=== PATIENT | female | born 1955 | race Caucasian/White ===

== ENCOUNTER 2017-06-18 12:22 | Inpatient (IN) | payer MEDICARE, MEDICAID, OTHER ==
[2017-06-18] MEDS: SOD CHLORIDE 0.9% 1,000 ML IV ×3 (13:28→23:13)
[2017-06-18 13:35] LABS: ADD MAN DIFF? NO
[2017-06-18 13:38] LABS: BASOPHILS % 0.5 % (0.0-2.0); EOSINOPHILS % 0.4 % (0.0-7.0); HEMATOCRIT 43.1 % (37.0-47.0); LYMPHOCYTES # 1.3 10^3/ul (0.8-2.9); LYMPHOCYTES % 16.7 % (15.0-51.0); MEAN CORPUSCULAR HEMOGLOBIN 28.7 pg (29.0-33.0); MEAN CORPUSCULAR HGB CONC 34.8 g/dl (32.0-37.0); MEAN CORPUSCULAR VOLUME 82.4 fl (82.0-101.0); MEAN PLATELET VOLUME 9.1 fl (7.4-10.4); MONOCYTE # 0.6 10^3/ul (0.3-0.9); MONOCYTES % 7.5 % (0.0-11.0); NEUTROPHIL # 5.9 10^3/ul (1.6-7.5); NEUTROPHILS % 74.4 % (39.0-77.0); NUCLEATED RED BLOOD CELLS% 0.3 /100WBC (0.0-0.0); PLATELET COUNT 285 10^3/UL (140-415); RED BLOOD COUNT 5.23 10^6/ul (4.20-5.40); RED CELL DISTRIBUTION WIDTH 13.6 % (11.5-14.5)
[2017-06-18 13:38] LABS: WHITE BLOOD COUNT 7.9 10^3/ul (4.8-10.8)
[2017-06-18 14:01] LABS: ALANINE AMINOTRANSFERASE 25 IU/L (13-69); ALBUMIN/GLOBULIN RATIO 1.05; ALKALINE PHOSPHATASE 84 IU/L (42-121); ANION GAP 21 (8-16); ASPARTATE AMINO TRANSFERASE 25 IU/L (15-46); BILIRUBIN,INDIRECT 1.2 mg/dl (0-1.1); BILIRUBIN,TOTAL 1.2 mg/dl (0.2-1.3); BLOOD UREA NITROGEN 26 mg/dl (7-20); CALCIUM 10.4 mg/dl (8.4-10.2); CARBON DIOXIDE 28 mmol/L (21-31); CHLORIDE 96 mmol/L (97-110); CREATININE 0.72 mg/dl (0.44-1.00); GLUCOSE 139 mg/dl (70-220); SODIUM 142 mmol/L (135-144); TOTAL PROTEIN 7.8 g/dl (6.1-8.1)
[2017-06-18 14:12] LABS: TROPONIN-I 0.016 ng/ml (0.00-0.12)
[2017-06-18 14:17] LABS: ADD UMIC YES; UR ASCORBIC ACID NEGATIVE (NEGATIVE); UR BACTERIA FEW /HPF (NONE SEEN); UR BILIRUBIN (Dip) 2+ mg/dL (NEGATIVE); UR BLOOD (Dip) 1+ mg/dL (NEGATIVE); UR CLARITY CLOUDY (CLEAR); UR COLOR AMBER (YELLOW); UR GLUCOSE (Dip) NEGATIVE (NEGATIVE); UR KETONES (Dip) 1+ mg/dL (NEGATIVE); UR LEUKOCYTE ESTERASE (Dip) TRACE Leu/ul (NEGATIVE); UR MUCUS MANY /HPF (NONE SEEN); UR NITRITE (Dip) NEGATIVE (NEGATIVE); UR RBC 0 /HPF (0-5); UR SPECIFIC GRAVITY (Dip) 1.032 (1.003-1.030); UR SQUAMOUS EPITHELIAL CELL FEW /HPF (FEW); UR TOTAL PROTEIN (Dip) 2+ mg/dl (NEGATIVE); UR UROBILINOGEN (Dip) 2+ mg/dL (NEGATIVE); UR WBC 38 /HPF (0-5)
[2017-06-18] MEDS: CIPROFLOXACIN 400MG/D5W 200 ML IVPB (15:24)
[2017-06-18 16:28] LABS: LACTIC ACID 1.4 mmol/L (0.5-2.0)
[2017-06-18] MEDS ORDERED: ONDANSETRON 4 MG INJ IV (18:00)
[2017-06-18] MEDS ORDERED: ACETAMINOPHEN 325 MG TAB PO ×2 (18:00→18:30)
[2017-06-18 18:05] LABS: LACTIC ACID 1.5 mmol/L (0.5-2.0)
[2017-06-18] MEDS ORDERED: NITROGLYCERIN (SL) 0.4 MG TAB SL (18:30)
[2017-06-18] MEDS ORDERED: DOCUSATE SODIUM 100 MG CAP PO (18:30)
[2017-06-18] MEDS ORDERED: ALBUTEROL/IPRATROPIUM (NEB) 3 ML AMP HHN (18:30)
[2017-06-18] MEDS ORDERED: NACL 0.9% 3 ML SYG IV (18:30)
[2017-06-18] MEDS ORDERED: hydrALAzine 20 MG INJ IV (18:30)
[2017-06-18] MEDS ORDERED: LORAZEPAM 2 MG INJ IV (18:30)
[2017-06-18] MEDS ORDERED: morphine 2 MG INJ IV (18:30)
[2017-06-18] MEDS ORDERED: HYDROCODONE/APAP (5/325) TAB PO (18:30)
[2017-06-18] MEDS ORDERED: MAGNESIUM HYDROXIDE 30ML CUP PO (18:30)
[2017-06-18 19:10] LABS: FREE T4 (FREE THYROXINE) 1.56 ng/dl (0.78-2.44)
[2017-06-18 20:04] LABS: INR 0.98; PROTIME 13.1 Sec (11.9-14.9)
[2017-06-18 20:06] LABS: PARTIAL THROMBOPLASTIN TIME 25.9 Sec (25.0-35.0)
[2017-06-18 20:07] LABS: LACTIC ACID 1.4 mmol/L (0.5-2.0)
[2017-06-18] MEDS: IPRATROPIUM (NEB) 0.5 MG/2.5 ML AMP NEB (21:39)
[2017-06-18] MEDS: ALBUTEROL 0.083% (NEB) 2.5 MG/3 ML AMP NEB (21:39)
[2017-06-18] MEDS: PIPER-TAZO 3.375 GM IV (PMX) 50 ML IVPB (23:07)
[2017-06-19 01:42] LABS: LACTIC ACID 1.6 mmol/L (0.5-2.0)
[2017-06-19] MEDS: SOD CHLORIDE 0.9% 1,000 ML IV ×3 (04:29→21:10)
[2017-06-19 05:24] LABS: ADD MAN DIFF? NO
[2017-06-19 05:27] LABS: WHITE BLOOD COUNT 8.6 10^3/ul (4.8-10.8)
[2017-06-19 05:27] LABS: BASOPHILS % 0.4 % (0.0-2.0); EOSINOPHILS % 0.5 % (0.0-7.0); HEMATOCRIT 34.8 % (37.0-47.0); HEMOGLOBIN 12.1 g/dl (12.0-16.0); LYMPHOCYTES # 1.1 10^3/ul (0.8-2.9); LYMPHOCYTES % 13.2 % (15.0-51.0); MEAN CORPUSCULAR HEMOGLOBIN 28.9 pg (29.0-33.0); MEAN CORPUSCULAR HGB CONC 34.8 g/dl (32.0-37.0); MEAN CORPUSCULAR VOLUME 83.1 fl (82.0-101.0); MEAN PLATELET VOLUME 9.2 fl (7.4-10.4); MONOCYTE # 0.6 10^3/ul (0.3-0.9); MONOCYTES % 7.1 % (0.0-11.0); NEUTROPHIL # 6.7 10^3/ul (1.6-7.5); NEUTROPHILS % 78.2 % (39.0-77.0); NUCLEATED RED BLOOD CELLS% 0.2 /100WBC (0.0-0.0); PLATELET COUNT 192 10^3/UL (140-415); RED BLOOD COUNT 4.19 10^6/ul (4.20-5.40); RED CELL DISTRIBUTION WIDTH 13.6 % (11.5-14.5)
[2017-06-19 05:43] LABS: HEMOGLOBIN A1C 5.2 % (0-5.9)
[2017-06-19] MEDS: PANTOPRAZOLE 40 MG INJ IV (05:54)
[2017-06-19] MEDS: PIPER-TAZO 3.375 GM IV (PMX) 50 ML IVPB ×4 (05:55→23:50)
[2017-06-19 06:01] LABS: ANION GAP 15 (8-16); BLOOD UREA NITROGEN 18 mg/dl (7-20); CALCIUM 9.2 mg/dl (8.4-10.2); CARBON DIOXIDE 28 mmol/L (21-31); CHLORIDE 103 mmol/L (97-110); CREATININE 0.49 mg/dl (0.44-1.00); GLUCOSE 96 mg/dl (70-220); MAGNESIUM 1.7 mg/dl (1.7-2.5); PHOSPHORUS 2.9 mg/dl (2.5-4.9); SODIUM 143 mmol/L (135-144)
[2017-06-19] MEDS: ONDANSETRON 4 MG INJ IV (06:03)
[2017-06-19 06:22] LABS: LACTIC ACID 1.6 mmol/L (0.5-2.0)
[2017-06-19 07:48] LABS: CHOL/HDL RATIO 3.5 RATIO; HDL CHOLESTEROL 37 mg/dl (35-98); LDL CHOLESTEROL,CALCULATED 77 mg/dl; TRIGLYCERIDES 87 mg/dl (0-149)
[2017-06-19 07:48] LABS: CHOLESTEROL 131 mg/dl (100-200)
[2017-06-19 08:20] LABS: THYROID STIMULATING HORMONE 0.583 MIU/L (0.465-4.680)
[2017-06-19] MEDS ORDERED: POTASSIUM CHLORIDE 50 ML IVPB (10:00)
[2017-06-19] MEDS: POTASSIUM CHLORIDE 30 MEQ in DEXTROSE 5% 250 ML IV ×2 (11:15→15:00)
[2017-06-19 12:39] LABS: LACTIC ACID 1.2 mmol/L (0.5-2.0)
[2017-06-19 19:29] LABS: LACTIC ACID 1.6 mmol/L (0.5-2.0)
[2017-06-20] MEDS: SOD CHLORIDE 0.9% 1,000 ML IV ×4 (00:29→20:29)
[2017-06-20] MEDS: PIPER-TAZO 3.375 GM IV (PMX) 50 ML IVPB (05:03)
[2017-06-20] MEDS: PANTOPRAZOLE 40 MG INJ IV (05:03)
[2017-06-20 07:27] LABS: ADD MAN DIFF? NO
[2017-06-20 07:36] LABS: BASOPHIL # 0.1 10^3/ul (0.0-0.1); EOSINOPHILS # 0.2 10^3/ul (0.0-0.5); EOSINOPHILS % 2.8 % (0.0-7.0); HEMATOCRIT 32.5 % (37.0-47.0); HEMOGLOBIN 11.1 g/dl (12.0-16.0); LYMPHOCYTES # 1.3 10^3/ul (0.8-2.9); LYMPHOCYTES % 21.3 % (15.0-51.0); MEAN CORPUSCULAR HGB CONC 34.2 g/dl (32.0-37.0); MEAN CORPUSCULAR VOLUME 84.9 fl (82.0-101.0); MEAN PLATELET VOLUME 9.3 fl (7.4-10.4); MONOCYTE # 0.4 10^3/ul (0.3-0.9); MONOCYTES % 6.9 % (0.0-11.0); NEUTROPHIL # 4.1 10^3/ul (1.6-7.5); NEUTROPHILS % 67.2 % (39.0-77.0); PLATELET COUNT 156 10^3/UL (140-415); RED BLOOD COUNT 3.83 10^6/ul (4.20-5.40); RED CELL DISTRIBUTION WIDTH 13.7 % (11.5-14.5)
[2017-06-20 07:36] LABS: WHITE BLOOD COUNT 6.1 10^3/ul (4.8-10.8)
[2017-06-20 08:00] LABS: ANION GAP 12 (8-16); BLOOD UREA NITROGEN 9 mg/dl (7-20); CALCIUM 8.7 mg/dl (8.4-10.2); CARBON DIOXIDE 25 mmol/L (21-31); CHLORIDE 106 mmol/L (97-110); CREATININE 0.61 mg/dl (0.44-1.00); GLUCOSE 86 mg/dl (70-220); POTASSIUM 3.1 mmol/L (3.5-5.1); SODIUM 140 mmol/L (135-144)
[2017-06-20] MEDS: CEFTRIAXONE 1 GM/50 ML (PMX) 50 ML IVPB (18:33)
[2017-06-21] MEDS: SOD CHLORIDE 0.9% 1,000 ML IV ×3 (01:29→12:33)
[2017-06-21 06:24] LABS: ADD MAN DIFF? NO
[2017-06-21 06:29] LABS: WHITE BLOOD COUNT 5.6 10^3/ul (4.8-10.8)
[2017-06-21 06:29] LABS: BASOPHIL # 0.1 10^3/ul (0.0-0.1); BASOPHILS % 1.2 % (0.0-2.0); EOSINOPHILS # 0.2 10^3/ul (0.0-0.5); EOSINOPHILS % 3.2 % (0.0-7.0); HEMATOCRIT 31.8 % (37.0-47.0); HEMOGLOBIN 10.9 g/dl (12.0-16.0); LYMPHOCYTES # 1.8 10^3/ul (0.8-2.9); LYMPHOCYTES % 31.2 % (15.0-51.0); MEAN CORPUSCULAR HEMOGLOBIN 28.2 pg (29.0-33.0); MEAN CORPUSCULAR HGB CONC 34.3 g/dl (32.0-37.0); MEAN CORPUSCULAR VOLUME 82.4 fl (82.0-101.0); MEAN PLATELET VOLUME 8.9 fl (7.4-10.4); MONOCYTE # 0.3 10^3/ul (0.3-0.9); NEUTROPHIL # 3.2 10^3/ul (1.6-7.5); NEUTROPHILS % 57.2 % (39.0-77.0); PLATELET COUNT 140 10^3/UL (140-415); RED BLOOD COUNT 3.86 10^6/ul (4.20-5.40); RED CELL DISTRIBUTION WIDTH 13.3 % (11.5-14.5)
[2017-06-21 08:44] LABS: ANION GAP 14 (8-16); BLOOD UREA NITROGEN 4 mg/dl (7-20); CALCIUM 8.5 mg/dl (8.4-10.2); CARBON DIOXIDE 23 mmol/L (21-31); CHLORIDE 102 mmol/L (97-110); CREATININE 0.46 mg/dl (0.44-1.00); GLUCOSE 72 mg/dl (70-220); SODIUM 136 mmol/L (135-144)
[2017-06-21] MEDS: CEPHALEXIN 500 MG CAP PO (12:33)
[2017-06-21] MEDS: POTASSIUM CHLORIDE (SR) 20 MEQ TAB PO (12:33)
[2017-06-21] MEDS ORDERED: VITAMIN A & D 5 GM OINT PACKET TOP (12:53)
[2017-06-22] MEDS: SOD CHLORIDE 0.9% 1,000 ML IV ×5 (01:17→22:29)
[2017-06-22] MEDS: CEPHALEXIN 500 MG CAP PO ×2 (01:17→12:34)
[2017-06-22 07:33] LABS: ADD MAN DIFF? NO
[2017-06-22 07:37] LABS: WHITE BLOOD COUNT 4.5 10^3/ul (4.8-10.8)
[2017-06-22 07:37] LABS: BASOPHILS % 0.9 % (0.0-2.0); EOSINOPHILS # 0.1 10^3/ul (0.0-0.5); EOSINOPHILS % 2.2 % (0.0-7.0); HEMATOCRIT 29.4 % (37.0-47.0); HEMOGLOBIN 10.6 g/dl (12.0-16.0); LYMPHOCYTES # 1.5 10^3/ul (0.8-2.9); LYMPHOCYTES % 33.3 % (15.0-51.0); MEAN CORPUSCULAR HEMOGLOBIN 29.1 pg (29.0-33.0); MEAN CORPUSCULAR HGB CONC 36.1 g/dl (32.0-37.0); MEAN CORPUSCULAR VOLUME 80.8 fl (82.0-101.0); MONOCYTE # 0.3 10^3/ul (0.3-0.9); MONOCYTES % 5.8 % (0.0-11.0); NEUTROPHIL # 2.6 10^3/ul (1.6-7.5); NEUTROPHILS % 56.7 % (39.0-77.0); PLATELET COUNT 120 10^3/UL (140-415); RED BLOOD COUNT 3.64 10^6/ul (4.20-5.40); RED CELL DISTRIBUTION WIDTH 13.3 % (11.5-14.5)
[2017-06-22 08:02] LABS: BLOOD UREA NITROGEN 4 mg/dl (7-20); CARBON DIOXIDE 24 mmol/L (21-31); CHLORIDE 99 mmol/L (97-110); CREATININE 0.44 mg/dl (0.44-1.00); GLUCOSE 75 mg/dl (70-220)
[2017-06-22 08:21] LABS: ANION GAP 13 (8-16); CALCIUM 8.3 mg/dl (8.4-10.2); SODIUM 133 mmol/L (135-144)
[2017-06-22] MEDS: ASPIRIN 81 MG TAB PO (08:48)
[2017-06-22] MEDS: CARBIDOPA/LEVODOPA (25/100) TAB PO (21:45)
[2017-06-23] MEDS: CEPHALEXIN 500 MG CAP PO ×2 (00:12→12:20)
[2017-06-23 06:30] LABS: ADD MAN DIFF? NO
[2017-06-23 06:34] LABS: WHITE BLOOD COUNT 4.3 10^3/ul (4.8-10.8)
[2017-06-23 06:34] LABS: BASOPHILS % 0.9 % (0.0-2.0); EOSINOPHILS # 0.1 10^3/ul (0.0-0.5); EOSINOPHILS % 2.8 % (0.0-7.0); HEMOGLOBIN 11.4 g/dl (12.0-16.0); LYMPHOCYTES # 1.5 10^3/ul (0.8-2.9); LYMPHOCYTES % 35.1 % (15.0-51.0); MEAN CORPUSCULAR HEMOGLOBIN 29.2 pg (29.0-33.0); MEAN CORPUSCULAR HGB CONC 36.8 g/dl (32.0-37.0); MEAN CORPUSCULAR VOLUME 79.5 fl (82.0-101.0); MEAN PLATELET VOLUME 9.4 fl (7.4-10.4); MONOCYTE # 0.3 10^3/ul (0.3-0.9); NEUTROPHIL # 2.3 10^3/ul (1.6-7.5); NEUTROPHILS % 53.3 % (39.0-77.0); NUCLEATED RED BLOOD CELLS% 0.5 /100WBC (0.0-0.0); PLATELET COUNT 113 10^3/UL (140-415); RED CELL DISTRIBUTION WIDTH 13.2 % (11.5-14.5)
[2017-06-23 07:11] LABS: ANION GAP 14 (8-16); BLOOD UREA NITROGEN 4 mg/dl (7-20); CALCIUM 8.6 mg/dl (8.4-10.2); CARBON DIOXIDE 24 mmol/L (21-31); CHLORIDE 99 mmol/L (97-110); CREATININE 0.46 mg/dl (0.44-1.00); GLUCOSE 77 mg/dl (70-220); POTASSIUM 3.1 mmol/L (3.5-5.1); SODIUM 134 mmol/L (135-144)
[2017-06-23] MEDS: SOD CHLORIDE 0.9% 1,000 ML IV (09:28)
[2017-06-23] MEDS: ASPIRIN 81 MG TAB PO (09:29)
[2017-06-23] MEDS: CARBIDOPA/LEVODOPA (25/100) TAB PO ×3 (09:29→20:54)
[2017-06-23] MEDS: FLUCONAZOLE 200 MG TAB PO (18:36)
[2017-06-23 22:08] LABS: MAGNESIUM 1.4 mg/dl (1.7-2.5)
[2017-06-23] MEDS ORDERED: POTASSIUM CHLORIDE (SR) 20 MEQ TAB PO (23:07)
[2017-06-24] MEDS: CEPHALEXIN 500 MG CAP PO ×2 (00:14→12:44)
[2017-06-24] MEDS: MAGNESIUM SULFATE 2 GM/50 ML 50 ML IVPB (00:29)
[2017-06-24] MEDS: POTASSIUM CHLORIDE (SR) 20 MEQ TAB PO (03:04)
[2017-06-24] MEDS: POTASSIUM CHLORIDE 40 MEQ in SOD CHLORIDE 0.9% 250 ML IV ×2 (03:55→09:29)
[2017-06-24] MEDS: CARBIDOPA/LEVODOPA (25/100) TAB PO ×3 (09:29→21:01)
[2017-06-24] MEDS: ASPIRIN 81 MG TAB PO (09:29)
[2017-06-24] MEDS: FLUCONAZOLE 200 MG TAB PO (09:30)
[2017-06-24 15:20] LABS: ADD MAN DIFF? NO
[2017-06-24 15:25] LABS: WHITE BLOOD COUNT 4.2 10^3/ul (4.8-10.8)
[2017-06-24 15:25] LABS: EOSINOPHILS # 0.1 10^3/ul (0.0-0.5); EOSINOPHILS % 1.7 % (0.0-7.0); HEMATOCRIT 34.4 % (37.0-47.0); HEMOGLOBIN 12.2 g/dl (12.0-16.0); LYMPHOCYTES % 24.9 % (15.0-51.0); MEAN CORPUSCULAR HEMOGLOBIN 28.4 pg (29.0-33.0); MEAN CORPUSCULAR HGB CONC 35.5 g/dl (32.0-37.0); MEAN CORPUSCULAR VOLUME 80.2 fl (82.0-101.0); MEAN PLATELET VOLUME 9.1 fl (7.4-10.4); MONOCYTE # 0.2 10^3/ul (0.3-0.9); MONOCYTES % 5.8 % (0.0-11.0); NEUTROPHIL # 2.7 10^3/ul (1.6-7.5); NEUTROPHILS % 65.2 % (39.0-77.0); PLATELET COUNT 131 10^3/UL (140-415); RED BLOOD COUNT 4.29 10^6/ul (4.20-5.40); RED CELL DISTRIBUTION WIDTH 13.5 % (11.5-14.5)
[2017-06-24 16:32] LABS: ANION GAP 20 (8-16); BLOOD UREA NITROGEN 7 mg/dl (7-20); CALCIUM 9.2 mg/dl (8.4-10.2); CARBON DIOXIDE 20 mmol/L (21-31); CHLORIDE 103 mmol/L (97-110); CREATININE 0.49 mg/dl (0.44-1.00); GLUCOSE 84 mg/dl (70-220); POTASSIUM 4.6 mmol/L (3.5-5.1); SODIUM 138 mmol/L (135-144)
[2017-06-25] MEDS: CEPHALEXIN 500 MG CAP PO ×2 (00:45→13:09)
[2017-06-25 06:19] LABS: ADD MAN DIFF? NO
[2017-06-25 06:32] LABS: WHITE BLOOD COUNT 4.9 10^3/ul (4.8-10.8)
[2017-06-25 06:32] LABS: BASOPHIL # 0.1 10^3/ul (0.0-0.1); BASOPHILS % 1.2 % (0.0-2.0); EOSINOPHILS # 0.1 10^3/ul (0.0-0.5); EOSINOPHILS % 2.1 % (0.0-7.0); HEMATOCRIT 33.2 % (37.0-47.0); HEMOGLOBIN 11.8 g/dl (12.0-16.0); LYMPHOCYTES # 1.5 10^3/ul (0.8-2.9); LYMPHOCYTES % 31.5 % (15.0-51.0); MEAN CORPUSCULAR HEMOGLOBIN 28.6 pg (29.0-33.0); MEAN CORPUSCULAR HGB CONC 35.5 g/dl (32.0-37.0); MEAN CORPUSCULAR VOLUME 80.6 fl (82.0-101.0); MEAN PLATELET VOLUME 9.7 fl (7.4-10.4); MONOCYTE # 0.4 10^3/ul (0.3-0.9); MONOCYTES % 7.2 % (0.0-11.0); NEUTROPHIL # 2.7 10^3/ul (1.6-7.5); NEUTROPHILS % 56.6 % (39.0-77.0); PLATELET COUNT 116 10^3/UL (140-415); RED BLOOD COUNT 4.12 10^6/ul (4.20-5.40); RED CELL DISTRIBUTION WIDTH 13.6 % (11.5-14.5)
[2017-06-25 07:13] LABS: ANION GAP 18 (8-16); BLOOD UREA NITROGEN 7 mg/dl (7-20); CALCIUM 9.3 mg/dl (8.4-10.2); CARBON DIOXIDE 21 mmol/L (21-31); CHLORIDE 103 mmol/L (97-110); CREATININE 0.54 mg/dl (0.44-1.00); GLUCOSE 86 mg/dl (70-220); POTASSIUM 3.8 mmol/L (3.5-5.1); SODIUM 138 mmol/L (135-144)
[2017-06-25] MEDS: CARBIDOPA/LEVODOPA (25/100) TAB PO ×3 (09:47→21:22)
[2017-06-25] MEDS: ASPIRIN 81 MG TAB PO (09:47)
[2017-06-25] MEDS: FLUCONAZOLE 200 MG TAB PO (09:47)
[2017-06-25] MEDS: ONDANSETRON 4 MG INJ IV (13:15)
[2017-06-26] MEDS: CEPHALEXIN 500 MG CAP PO (00:13)
[2017-06-26] MEDS: CARBIDOPA/LEVODOPA (25/100) TAB PO ×2 (09:11→21:44)
[2017-06-26] MEDS: ASPIRIN 81 MG TAB PO (09:11)
[2017-06-26] MEDS: FLUCONAZOLE 200 MG TAB PO (09:11)
[2017-06-26 11:39] LABS: ADD MAN DIFF? NO
[2017-06-26 11:44] LABS: ABNORMAL IP MESSAGE 1; BASOPHIL # 0.1 10^3/ul (0.0-0.1); BASOPHILS % 1.1 % (0.0-2.0); EOSINOPHILS # 0.1 10^3/ul (0.0-0.5); EOSINOPHILS % 2.2 % (0.0-7.0); HEMATOCRIT 31.2 % (37.0-47.0); HEMOGLOBIN 10.9 g/dl (12.0-16.0); LYMPHOCYTES # 1.9 10^3/ul (0.8-2.9); LYMPHOCYTES % 41.3 % (15.0-51.0); MEAN CORPUSCULAR HEMOGLOBIN 28.5 pg (29.0-33.0); MEAN CORPUSCULAR HGB CONC 34.9 g/dl (32.0-37.0); MEAN CORPUSCULAR VOLUME 81.5 fl (82.0-101.0); MEAN PLATELET VOLUME 10.1 fl (7.4-10.4); MONOCYTE # 0.3 10^3/ul (0.3-0.9); MONOCYTES % 7.2 % (0.0-11.0); NEUTROPHIL # 2.2 10^3/ul (1.6-7.5); NEUTROPHILS % 47.3 % (39.0-77.0); PLATELET COUNT 99 10^3/UL (140-415); RED BLOOD COUNT 3.83 10^6/ul (4.20-5.40); RED CELL DISTRIBUTION WIDTH 13.6 % (11.5-14.5)
[2017-06-26 11:44] LABS: WHITE BLOOD COUNT 4.6 10^3/ul (4.8-10.8)
[2017-06-26 11:53] LABS: POSITIVE DIFF @See below
[2017-06-26 12:17] LABS: ANION GAP 19 (8-16); BLOOD UREA NITROGEN 10 mg/dl (7-20); CALCIUM 9.6 mg/dl (8.4-10.2); CARBON DIOXIDE 25 mmol/L (21-31); CHLORIDE 102 mmol/L (97-110); CREATININE 0.56 mg/dl (0.44-1.00); GLUCOSE 94 mg/dl (70-220); POTASSIUM 3.7 mmol/L (3.5-5.1); SODIUM 142 mmol/L (135-144)
[2017-06-27] MEDS: CARBIDOPA/LEVODOPA (25/100) TAB PO ×2 (08:04→20:40)
[2017-06-27] MEDS: FLUCONAZOLE 200 MG TAB PO (08:04)
[2017-06-27] MEDS: ASPIRIN 81 MG TAB PO (08:04)
[2017-06-27] MEDS: NA PHOSPHATE/BIPHOS 133 ML ENEMA PR (10:10)
[2017-06-28] MEDS: CARBIDOPA/LEVODOPA (25/100) TAB PO (10:02)
[2017-06-28] MEDS: ASPIRIN 81 MG TAB PO (10:02)
[2017-06-28 20:15] LABS: ADD MAN DIFF? NO
[2017-06-28 20:20] LABS: WHITE BLOOD COUNT 6.9 10^3/ul (4.8-10.8)
[2017-06-28 20:20] LABS: ABNORMAL IP MESSAGE 1; BASOPHIL # 0.1 10^3/ul (0.0-0.1); BASOPHILS % 0.7 % (0.0-2.0); EOSINOPHILS # 0.1 10^3/ul (0.0-0.5); EOSINOPHILS % 1.3 % (0.0-7.0); HEMATOCRIT 30.3 % (37.0-47.0); HEMOGLOBIN 10.7 g/dl (12.0-16.0); LYMPHOCYTES % 29.1 % (15.0-51.0); MEAN CORPUSCULAR HEMOGLOBIN 28.5 pg (29.0-33.0); MEAN CORPUSCULAR HGB CONC 35.3 g/dl (32.0-37.0); MEAN CORPUSCULAR VOLUME 80.8 fl (82.0-101.0); MEAN PLATELET VOLUME 10.2 fl (7.4-10.4); MONOCYTE # 0.4 10^3/ul (0.3-0.9); MONOCYTES % 5.1 % (0.0-11.0); NEUTROPHIL # 4.4 10^3/ul (1.6-7.5); NEUTROPHILS % 63.4 % (39.0-77.0); PLATELET COUNT 82 10^3/UL (140-415); RED BLOOD COUNT 3.75 10^6/ul (4.20-5.40); RED CELL DISTRIBUTION WIDTH 13.3 % (11.5-14.5)
[2017-06-28 20:29] LABS: INR 0.99; PROTIME 13.2 Sec (11.9-14.9)
[2017-06-28 20:30] LABS: PARTIAL THROMBOPLASTIN TIME 30.9 Sec (25.0-35.0)
[2017-06-28 20:31] LABS: POSITIVE DIFF @See below
[2017-06-28 20:35] LABS: ANION GAP 18 (8-16); BLOOD UREA NITROGEN 13 mg/dl (7-20); CALCIUM 9.2 mg/dl (8.4-10.2); CARBON DIOXIDE 24 mmol/L (21-31); CHLORIDE 102 mmol/L (97-110); CREATININE 0.48 mg/dl (0.44-1.00); GLUCOSE 109 mg/dl (70-220); POTASSIUM 3.6 mmol/L (3.5-5.1); SODIUM 140 mmol/L (135-144)
[2017-06-29] MEDS ORDERED: BACITRACIN/POLYMYXIN 28.35 GM OINT TOP (06:51)
[2017-06-29] MEDS ORDERED: LIDOCAINE 2% (SDV) 5 ML INJ (07:00)
[2017-06-29] MEDS ORDERED: SUCCINYLCHOLINE CHLORIDE 100 MG/5 ML SYG IV (07:00)
[2017-06-29] MEDS ORDERED: CEFAZOLIN 1 GM INJ (07:00)
[2017-06-29] MEDS ORDERED: PROPOFOL 40 ML (07:01)
[2017-06-29] MEDS ORDERED: ROCURONIUM 50 MG INJ (07:01)
[2017-06-29] MEDS ORDERED: FENTAnyl 50 MCG/ML VIAL ×2 (07:01→09:10)
[2017-06-29] MEDS ORDERED: MIDAZOLAM 1 MG/ML 2 ML INJ (07:01)
[2017-06-29] MEDS ORDERED: ONDANSETRON 4 MG INJ (07:02)
[2017-06-29] MEDS ORDERED: FAMOTIDINE 20 MG INJ (07:02)
[2017-06-29] MEDS ORDERED: DEXAMETHASONE 4 MG/ML 1 ML INJ (07:02)
[2017-06-29] MEDS ORDERED: ACETAMINOPHEN 1000MG/100ML IV 100 ML (07:08)
[2017-06-29] MEDS ORDERED: LABETALOL HCL 20MG INJ ×2 (07:54→12:02)
[2017-06-29] MEDS ORDERED: PHENYLephrine (100 MCG/ML) 5ML SYG ×2 (08:02→08:16)
[2017-06-29] MEDS ORDERED: ESMOLOL 10 ML ×2 (08:10)
[2017-06-29] MEDS ORDERED: CA CHLORIDE 10% 10 ML SYRINGE (08:25)
[2017-06-29] MEDS: GELATIN SIZE 100 SPONGE (08:42)
[2017-06-29] MEDS: THROMBIN 5000 UNIT VIAL (08:42)
[2017-06-29] MEDS: BUPIVACAINE 0.5%/EPI (SDV) 30 ML INJ (08:56)
[2017-06-29] MEDS: POLYMYXIN/BACITRACIN 1L IRRIG (08:56)
[2017-06-29] MEDS: LIDOCAINE 0.5% (MDV) 50 ML INJ (08:56)
[2017-06-29] MEDS: ASPIRIN 81 MG TAB PO (09:00)
[2017-06-29] MEDS ORDERED: SUGAMMADEX SODIUM 200 MG/2 ML VIAL IV (09:37)
[2017-06-29 10:33] LABS: CSF RBC 0 /uL (0-0); CSF WBC 0 /cmm (0-10)
[2017-06-29 10:47] LABS: GLUCOSE,CSF 66 mg/dl (50-80)
[2017-06-29 10:47] LABS: TOTAL PROTEIN,CSF 25 mg/dl (12-60)
[2017-06-29] MEDS ORDERED: EPHEDrine SULFATE 50 MG/5 ML SYG IV (11:00)
[2017-06-29] MEDS ORDERED: FENTAnyl 50 MCG/ML VIAL IV (11:00)
[2017-06-29] MEDS ORDERED: morphine (1 MG/ML) 10ML SYRINGE IV (11:00)
[2017-06-29] MEDS ORDERED: LABETALOL HCL 20MG INJ IV (11:00)
[2017-06-29] MEDS ORDERED: MIDAZOLAM 1 MG/ML 2 ML INJ IV (11:00)
[2017-06-29] MEDS ORDERED: ONDANSETRON 4 MG INJ IV (11:00)
[2017-06-29] MEDS ORDERED: NALOXONE (0.4 MG/ML) INJ (11:56)
[2017-06-29] MEDS: HYDROmorphONE (0.2 MG/ML) 10ML SYG IV (12:18)
[2017-06-29] MEDS: NALOXONE (0.4 MG/ML) INJ IV (12:23)
[2017-06-29] MEDS: FENTAnyl 50 MCG/ML VIAL IV ×4 (12:24→13:45)
[2017-06-29 12:26] LABS: CSF COLOR COLORLESS
[2017-06-29 12:26] LABS: CSF CLARITY CLEAR; CSF#TUBE COUNT TUBE#1; CSF#TUBES REC'D 1
[2017-06-29] MEDS: LABETALOL HCL 20MG INJ IV (13:00)
[2017-06-29] MEDS ORDERED: morphine 2 MG INJ IV (15:30)
[2017-06-29 18:16] LABS: AADO2 Arterial 240.2 mmHg (7.0-24.0); Allen Test ACCEPTAB; Arterial Base Excess -2.4 mmol/L (-3.0-3); Arterial COHb 0.1 % (0.0-3.0); Arterial Fraction of Oxyhgb 98.6 % (93.0-99.0); Arterial HCO3 22.1 mmol/L (22.0-26.0); Arterial MetHb 0.3 % (0.0-1.5); Arterial pCO2 36.8 mmhg (35-45); MODE VENT - AC; Site Right Radial
[2017-06-30 02:02] LABS: ADD UMIC NO; UR ASCORBIC ACID NEGATIVE (NEGATIVE); UR BILIRUBIN (Dip) NEGATIVE (NEGATIVE); UR BLOOD (Dip) NEGATIVE (NEGATIVE); UR CLARITY SLIGHTLY CLOUDY (CLEAR); UR COLOR AMBER (YELLOW); UR GLUCOSE (Dip) 1+ mg/dL (NEGATIVE); UR KETONES (Dip) NEGATIVE (NEGATIVE); UR LEUKOCYTE ESTERASE (Dip) NEGATIVE Leu/ul (NEGATIVE); UR MUCUS MANY /HPF (NONE SEEN); UR NITRITE (Dip) NEGATIVE (NEGATIVE); UR RBC 1 /HPF (0-5); UR SPECIFIC GRAVITY (Dip) 1.029 (1.003-1.030); UR TOTAL PROTEIN (Dip) NEGATIVE (NEGATIVE); UR UROBILINOGEN (Dip) 1+ mg/dL (NEGATIVE); UR WBC 6 /HPF (0-5)
[2017-06-30 05:17] LABS: ADD MAN DIFF? NO
[2017-06-30 05:30] LABS: ABNORMAL IP MESSAGE 1; BASOPHILS % 0.2 % (0.0-2.0); HEMATOCRIT 26.5 % (37.0-47.0); HEMOGLOBIN 9.5 g/dl (12.0-16.0); LYMPHOCYTES # 0.7 10^3/ul (0.8-2.9); LYMPHOCYTES % 6.7 % (15.0-51.0); MEAN CORPUSCULAR HEMOGLOBIN 29.2 pg (29.0-33.0); MEAN CORPUSCULAR HGB CONC 35.8 g/dl (32.0-37.0); MEAN CORPUSCULAR VOLUME 81.5 fl (82.0-101.0); MEAN PLATELET VOLUME 11.2 fl (7.4-10.4); MONOCYTE # 0.5 10^3/ul (0.3-0.9); MONOCYTES % 4.4 % (0.0-11.0); NEUTROPHIL # 9.8 10^3/ul (1.6-7.5); NEUTROPHILS % 88.1 % (39.0-77.0); PLATELET COUNT 65 10^3/UL (140-415); RED BLOOD COUNT 3.25 10^6/ul (4.20-5.40); RED CELL DISTRIBUTION WIDTH 13.5 % (11.5-14.5)
[2017-06-30 05:30] LABS: WHITE BLOOD COUNT 11.1 10^3/ul (4.8-10.8)
[2017-06-30 06:03] LABS: POSITIVE DIFF @See below
[2017-06-30 06:34] LABS: ANION GAP 17 (8-16); BLOOD UREA NITROGEN 17 mg/dl (7-20); CALCIUM 9.5 mg/dl (8.4-10.2); CARBON DIOXIDE 25 mmol/L (21-31); CHLORIDE 102 mmol/L (97-110); CREATININE 0.61 mg/dl (0.44-1.00); GLUCOSE 135 mg/dl (70-220); MAGNESIUM 1.5 mg/dl (1.7-2.5); POTASSIUM 4.2 mmol/L (3.5-5.1); SODIUM 140 mmol/L (135-144)
[2017-06-30] MEDS: MAGNESIUM SULFATE 2 GM/50 ML 50 ML IVPB (10:29)
[2017-06-30] MEDS: SOD CHLORIDE 0.9% 1,000 ML IV ×5 (10:29→22:33)
[2017-06-30] MEDS: FAMOTIDINE 20 MG INJ IV (10:43)
[2017-06-30 16:13] LABS: AADO2 Arterial 84.2 mmHg (7.0-24.0); Allen Test ACCEPTAB; Arterial Blood Gas Oxygen Sat 98.2 mmHG (95.0-98.0); Arterial COHb 0.2 % (0.0-3.0); Arterial Fraction of Oxyhgb 97.5 % (93.0-99.0); Arterial HCO3 18.1 mmol/L (22.0-26.0); Arterial MetHb 0.5 % (0.0-1.5); Arterial Total Hemglobin 8.6 g/dl (12.0-18.0); Arterial pCO2 26.7 mmhg (35-45); MODE VENT - AC; Site Left Radial
[2017-06-30 17:00] LABS: ANION GAP 14 (8-16); BLOOD UREA NITROGEN 18 mg/dl (7-20); CALCIUM 8.7 mg/dl (8.4-10.2); CARBON DIOXIDE 22 mmol/L (21-31); CHLORIDE 107 mmol/L (97-110); CREATININE 0.55 mg/dl (0.44-1.00); GLUCOSE 115 mg/dl (70-220); POTASSIUM 3.6 mmol/L (3.5-5.1); SODIUM 139 mmol/L (135-144)
[2017-06-30] MEDS: DOCUSATE SODIUM 100 MG CAP PO (17:32)
[2017-07-01 05:31] LABS: ADD MAN DIFF? NO
[2017-07-01 05:47] LABS: WHITE BLOOD COUNT 10.6 10^3/ul (4.8-10.8)
[2017-07-01 05:47] LABS: ABNORMAL IP MESSAGE 1; BASOPHILS % 0.1 % (0.0-2.0); EOSINOPHILS % 0.2 % (0.0-7.0); HEMATOCRIT 20.9 % (37.0-47.0); HEMOGLOBIN 7.4 g/dl (12.0-16.0); LYMPHOCYTES # 1.3 10^3/ul (0.8-2.9); LYMPHOCYTES % 11.9 % (15.0-51.0); MEAN CORPUSCULAR HEMOGLOBIN 29.2 pg (29.0-33.0); MEAN CORPUSCULAR HGB CONC 35.4 g/dl (32.0-37.0); MEAN CORPUSCULAR VOLUME 82.6 fl (82.0-101.0); MEAN PLATELET VOLUME 11.3 fl (7.4-10.4); MONOCYTE # 0.6 10^3/ul (0.3-0.9); MONOCYTES % 5.2 % (0.0-11.0); NEUTROPHIL # 8.7 10^3/ul (1.6-7.5); NEUTROPHILS % 81.9 % (39.0-77.0); PLATELET COUNT 57 10^3/UL (140-415); RED BLOOD COUNT 2.53 10^6/ul (4.20-5.40); RED CELL DISTRIBUTION WIDTH 13.6 % (11.5-14.5)
[2017-07-01 06:07] LABS: ANION GAP 13 (8-16); BLOOD UREA NITROGEN 18 mg/dl (7-20); CALCIUM 8.3 mg/dl (8.4-10.2); CARBON DIOXIDE 22 mmol/L (21-31); CHLORIDE 111 mmol/L (97-110); GLUCOSE 105 mg/dl (70-220); POTASSIUM 3.4 mmol/L (3.5-5.1); SODIUM 143 mmol/L (135-144)
[2017-07-01] MEDS: DOCUSATE SODIUM 100 MG CAP PO ×2 (06:11→17:01)
[2017-07-01 06:14] LABS: POSITIVE DIFF @See below
[2017-07-01 09:44] LABS: MAGNESIUM 1.9 mg/dl (1.7-2.5)
[2017-07-01] MEDS: SOD CHLORIDE 0.9% 1,000 ML IV ×5 (11:23→22:40)
[2017-07-01] MEDS: FAMOTIDINE 20 MG INJ IV (11:23)
[2017-07-01] MEDS: POTASSIUM CHLORIDE 50 ML IVPB ×3 (11:28→17:00)
[2017-07-01] MEDS: SOD CHLORIDE 0.9% 500 ML IV (20:37)
[2017-07-01] MEDS ORDERED: LIDOCAINE 1% (MPF) 5 ML VIAL SC (22:30)
[2017-07-01] MEDS: ALBUMIN HUMAN 25% 100 ML IV (22:40)
[2017-07-02] MEDS: ALBUMIN HUMAN 25% 100 ML IV (02:02)
[2017-07-02] MEDS: SOD CHLORIDE 0.9% 1,000 ML IV ×2 (02:05→10:52)
[2017-07-02 05:24] LABS: ADD MAN DIFF? NO
[2017-07-02 05:34] LABS: ABNORMAL IP MESSAGE 1; EOSINOPHILS % 0.6 % (0.0-7.0); HEMATOCRIT 15.9 % (37.0-47.0); LYMPHOCYTES # 1.2 10^3/ul (0.8-2.9); LYMPHOCYTES % 25.7 % (15.0-51.0); MEAN CORPUSCULAR HEMOGLOBIN 28.3 pg (29.0-33.0); MEAN CORPUSCULAR HGB CONC 33.3 g/dl (32.0-37.0); MEAN PLATELET VOLUME 10.4 fl (7.4-10.4); MONOCYTE # 0.2 10^3/ul (0.3-0.9); MONOCYTES % 5.1 % (0.0-11.0); NEUTROPHIL # 3.2 10^3/ul (1.6-7.5); NEUTROPHILS % 67.7 % (39.0-77.0); PLATELET COUNT 41 10^3/UL (140-415); RED BLOOD COUNT 1.87 10^6/ul (4.20-5.40); RED CELL DISTRIBUTION WIDTH 14.1 % (11.5-14.5)
[2017-07-02 05:34] LABS: WHITE BLOOD COUNT 4.7 10^3/ul (4.8-10.8)
[2017-07-02 06:03] LABS: ANION GAP 13 (8-16); BLOOD UREA NITROGEN 13 mg/dl (7-20); CALCIUM 8.6 mg/dl (8.4-10.2); CARBON DIOXIDE 22 mmol/L (21-31); CHLORIDE 118 mmol/L (97-110); GLUCOSE 88 mg/dl (70-220); POTASSIUM 3.1 mmol/L (3.5-5.1); SODIUM 150 mmol/L (135-144)
[2017-07-02 06:05] LABS: HEMOGLOBIN 5.3 g/dl (12.0-16.0)
[2017-07-02 06:06] LABS: PATH REVIEW? YES; POSITIVE DIFF @See below
[2017-07-02] MEDS: DOCUSATE SODIUM 100 MG CAP PO ×2 (06:30→18:11)
[2017-07-02] MEDS ORDERED: POTASSIUM CHLORIDE 30 MEQ in SOD CHLORIDE 0.9% 150 ML IVPB (06:30)
[2017-07-02] MEDS: POTASSIUM CHLORIDE 50 ML IVPB ×3 (07:02→16:15)
[2017-07-02 07:34] LABS: ANISOCYTOSIS 3+ (0-0); BAND NEUTROPHILS #M 0.1 10^3/ul (0.0-0.6); BAND NEUTROPHILS % (M) 3 % (0-4); EOSINOPHILS % (M) 1 % (0-7); LYMPHOCYTES #M 1.7 10^3/ul (0.8-2.9); LYMPHOCYTES % (M) 38 % (15-51); MICROCYTOSIS 3+ (0-0); MONOCYTES % (M) 1 % (0-11); PLATELET ESTIMATE SIG DECREASED; POIKILOCYTOSIS 1+ (0-0); POLYCHROMASIA 1+ (0-0); SEG NEUT #M 2.7 10^3/ul (1.7-7.5); SEGMENTED NEUTROPHILS (M) % 57 % (39-77)
[2017-07-02 07:43] LABS: MAGNESIUM 2.3 mg/dl (1.7-2.5)
[2017-07-02 09:15] LABS: IMMEDIATE SPIN CROSSMATCH 1 2
[2017-07-02] MEDS: FAMOTIDINE 20 MG INJ IV (09:42)
[2017-07-02 12:17] LABS: HEPATITIS C VIRAL ANTIBODY NEGATIVE (NEGATIVE)
[2017-07-02] MEDS: CARBIDOPA/LEVODOPA (25/100) TAB NGT ×2 (14:31→20:00)
[2017-07-02] MEDS: LACTATED RINGER'S 1,000 ML IV ×2 (16:30→20:22)
[2017-07-02] MEDS: NORepinephrine 8MG/250 ML (PMX 250 ML IV (18:02)
[2017-07-02 18:37] LABS: RAPID PLASMA REAGIN NONREACTIVE (NR)
[2017-07-03] MEDS: LACTATED RINGER'S 1,000 ML IV (03:15)
[2017-07-03 05:07] LABS: ADD MAN DIFF? NO
[2017-07-03 05:20] LABS: AADO2 Arterial 31.8 mmHg (7.0-24.0); Allen Test ACCEPTAB; Arterial Base Excess -0.4 mmol/L (-3.0-3); Arterial Blood Gas Oxygen Sat 97.9 mmHG (95.0-98.0); Arterial COHb 0.2 % (0.0-3.0); Arterial Fraction of Oxyhgb 97.6 % (93.0-99.0); Arterial HCO3 23.1 mmol/L (22.0-26.0); Arterial MetHb 0.1 % (0.0-1.5); Arterial Total Hemglobin 11.8 g/dl (12.0-18.0); Arterial pCO2 34.2 mmhg (35-45); MODE VENT - AC; Site Right Radial
[2017-07-03 05:21] LABS: WHITE BLOOD COUNT 6.6 10^3/ul (4.8-10.8)
[2017-07-03 05:21] LABS: ABNORMAL IP MESSAGE 1; BASOPHILS % 0.3 % (0.0-2.0); EOSINOPHILS # 0.1 10^3/ul (0.0-0.5); EOSINOPHILS % 2.1 % (0.0-7.0); HEMATOCRIT 23.5 % (37.0-47.0); HEMOGLOBIN 7.9 g/dl (12.0-16.0); LYMPHOCYTES # 1.6 10^3/ul (0.8-2.9); LYMPHOCYTES % 24.2 % (15.0-51.0); MEAN CORPUSCULAR HEMOGLOBIN 28.6 pg (29.0-33.0); MEAN CORPUSCULAR HGB CONC 33.6 g/dl (32.0-37.0); MEAN CORPUSCULAR VOLUME 85.1 fl (82.0-101.0); MEAN PLATELET VOLUME 9.8 fl (7.4-10.4); MONOCYTE # 0.3 10^3/ul (0.3-0.9); MONOCYTES % 4.5 % (0.0-11.0); NEUTROPHIL # 4.5 10^3/ul (1.6-7.5); NEUTROPHILS % 68.4 % (39.0-77.0); PLATELET COUNT 56 10^3/UL (140-415); RED BLOOD COUNT 2.76 10^6/ul (4.20-5.40); RED CELL DISTRIBUTION WIDTH 14.2 % (11.5-14.5)
[2017-07-03] MEDS: DOCUSATE SODIUM 100 MG CAP PO ×2 (05:37→18:38)
[2017-07-03 05:38] LABS: LACTIC ACID 1.7 mmol/L (0.5-2.0)
[2017-07-03 05:57] LABS: POSITIVE DIFF @See below
[2017-07-03 06:12] LABS: ANION GAP 12 (8-16); BLOOD UREA NITROGEN 7 mg/dl (7-20); CALCIUM 8.8 mg/dl (8.4-10.2); CARBON DIOXIDE 25 mmol/L (21-31); CHLORIDE 119 mmol/L (97-110); CREATININE 0.49 mg/dl (0.44-1.00); GLUCOSE 91 mg/dl (70-220); POTASSIUM 3.2 mmol/L (3.5-5.1); SODIUM 153 mmol/L (135-144)
[2017-07-03] MEDS: CARBIDOPA/LEVODOPA (25/100) TAB NGT ×3 (08:11→20:22)
[2017-07-03] MEDS: FAMOTIDINE 20 MG INJ IV (08:14)
[2017-07-03] MEDS ORDERED: POTASSIUM CHLORIDE (1.33 MEQ/ML PO SYG) NGT (09:00)
[2017-07-03] MEDS ORDERED: POTASSIUM CHLORIDE 30 MEQ in DEXTROSE 5% 250 ML IVPB (09:00)
[2017-07-03] MEDS: POTASSIUM CHLORIDE 20 MEQ POWDER FOR ORAL SOLN NGT ×3 (09:37→19:19)
[2017-07-03] MEDS: POTASSIUM CHLORIDE 50 ML IVPB ×3 (09:45→12:39)
[2017-07-03] MEDS: POTASSIUM CHLORIDE 10 MEQ in DEXTROSE 5%-0.225% NACL 1,000 ML IV ×2 (10:22→21:34)
[2017-07-03] MEDS: COSYNTROPIN 0.25 MG INJ IV (10:45)
[2017-07-03] MEDS: HYDROCORTISONE 100 MG INJ IV (10:50)
[2017-07-03] MEDS ORDERED: HEPARIN (10 UNITS/ML) 5ML SYG IV (15:30)
[2017-07-04] MEDS: POTASSIUM CHLORIDE 10 MEQ in DEXTROSE 5%-0.225% NACL 1,000 ML IV ×2 (02:46→18:00)
[2017-07-04 05:13] LABS: AADO2 Arterial 92.7 mmHg (7.0-24.0); Allen Test ACCEPTAB; Arterial Base Excess 3.2 mmol/L (-3.0-3); Arterial Blood Gas Oxygen Sat 95.5 mmHG (95.0-98.0); Arterial COHb 0.2 % (0.0-3.0); Arterial MetHb 0.3 % (0.0-1.5); Arterial pCO2 37.9 mmhg (35-45); MODE VENT - AC; Site Right Radial
[2017-07-04] MEDS: DOCUSATE SODIUM 100 MG CAP PO ×2 (05:30→10:00)
[2017-07-04 05:44] LABS: ADD MAN DIFF? NO
[2017-07-04 05:49] LABS: WHITE BLOOD COUNT 7.2 10^3/ul (4.8-10.8)
[2017-07-04 05:49] LABS: ABNORMAL IP MESSAGE 1; EOSINOPHILS # 0.1 10^3/ul (0.0-0.5); EOSINOPHILS % 0.8 % (0.0-7.0); HEMATOCRIT 24.2 % (37.0-47.0); HEMOGLOBIN 8.1 g/dl (12.0-16.0); LYMPHOCYTES # 1.1 10^3/ul (0.8-2.9); LYMPHOCYTES % 14.6 % (15.0-51.0); MEAN CORPUSCULAR HEMOGLOBIN 28.1 pg (29.0-33.0); MEAN CORPUSCULAR HGB CONC 33.5 g/dl (32.0-37.0); MEAN PLATELET VOLUME 10.5 fl (7.4-10.4); MONOCYTE # 0.3 10^3/ul (0.3-0.9); MONOCYTES % 4.5 % (0.0-11.0); NEUTROPHIL # 5.7 10^3/ul (1.6-7.5); NEUTROPHILS % 79.7 % (39.0-77.0); RED BLOOD COUNT 2.88 10^6/ul (4.20-5.40); RED CELL DISTRIBUTION WIDTH 14.5 % (11.5-14.5)
[2017-07-04 06:03] LABS: POSITIVE DIFF @See below
[2017-07-04 06:04] LABS: PLATELET COUNT 70 10^3/UL (140-415)
[2017-07-04 06:29] LABS: ALANINE AMINOTRANSFERASE 25 IU/L (13-69); ALBUMIN 2.6 g/dl (3.3-4.9); ALBUMIN/GLOBULIN RATIO 1.18; ALKALINE PHOSPHATASE 64 IU/L (42-121); ANION GAP 12 (8-16); ASPARTATE AMINO TRANSFERASE 10 IU/L (15-46); BILIRUBIN,INDIRECT 0.5 mg/dl (0-1.1); BILIRUBIN,TOTAL 0.5 mg/dl (0.2-1.3); BLOOD UREA NITROGEN 11 mg/dl (7-20); CALCIUM 8.7 mg/dl (8.4-10.2); CARBON DIOXIDE 28 mmol/L (21-31); CHLORIDE 113 mmol/L (97-110); CREATININE 0.46 mg/dl (0.44-1.00); GLUCOSE 126 mg/dl (70-220); POTASSIUM 4.2 mmol/L (3.5-5.1); SODIUM 149 mmol/L (135-144); TOTAL PROTEIN 4.8 g/dl (6.1-8.1)
[2017-07-04 06:31] LABS: MAGNESIUM 1.9 mg/dl (1.7-2.5)
[2017-07-04 06:31] LABS: PHOSPHORUS 1.5 mg/dl (2.5-4.9)
[2017-07-04 08:43] LABS: LACTIC ACID 1.2 mmol/L (0.5-2.0)
[2017-07-04] MEDS: CARBIDOPA/LEVODOPA (25/100) TAB NGT ×3 (10:26→20:42)
[2017-07-04] MEDS: FAMOTIDINE 20 MG INJ IV (10:28)
[2017-07-04] MEDS: FAMOTIDINE 20 MG TAB NGT (20:42)
[2017-07-05 05:22] LABS: ABNORMAL IP MESSAGE 1; HEMATOCRIT 25.5 % (37.0-47.0); HEMOGLOBIN 8.6 g/dl (12.0-16.0); MEAN CORPUSCULAR HEMOGLOBIN 28.7 pg (29.0-33.0); MEAN CORPUSCULAR HGB CONC 33.7 g/dl (32.0-37.0); MEAN PLATELET VOLUME 10.7 fl (7.4-10.4); NUCLEATED RED BLOOD CELLS% 0.6 /100WBC (0.0-0.0); PLATELET COUNT 95 10^3/UL (140-415); RED CELL DISTRIBUTION WIDTH 14.4 % (11.5-14.5)
[2017-07-05 05:22] LABS: WHITE BLOOD COUNT 8.4 10^3/ul (4.8-10.8)
[2017-07-05 05:32] LABS: ADD MAN DIFF? YES; POSITIVE DIFF @See below
[2017-07-05 06:19] LABS: ALANINE AMINOTRANSFERASE 25 IU/L (13-69); ALBUMIN 2.4 g/dl (3.3-4.9); ALBUMIN/GLOBULIN RATIO 0.92; ALKALINE PHOSPHATASE 70 IU/L (42-121); ANION GAP 8 (8-16); ASPARTATE AMINO TRANSFERASE 13 IU/L (15-46); BILIRUBIN,INDIRECT 0.5 mg/dl (0-1.1); BILIRUBIN,TOTAL 0.5 mg/dl (0.2-1.3); BLOOD UREA NITROGEN 9 mg/dl (7-20); CARBON DIOXIDE 29 mmol/L (21-31); CHLORIDE 107 mmol/L (97-110); GLUCOSE 115 mg/dl (70-220); POTASSIUM 3.7 mmol/L (3.5-5.1); SODIUM 140 mmol/L (135-144)
[2017-07-05 07:32] LABS: PHOSPHORUS 1.4 mg/dl (2.5-4.9)
[2017-07-05 07:32] LABS: MAGNESIUM 1.8 mg/dl (1.7-2.5)
[2017-07-05 07:53] LABS: ANISOCYTOSIS 2+ (0-0); BAND NEUTROPHILS #M 1.2 10^3/ul (0.0-0.6); BAND NEUTROPHILS % (M) 15 % (0-4); EOSINOPHILS % (M) 1 % (0-7); ERYTHROBLAST% (NRBC) (M) 1 % (0-0); LYMPHOCYTES #M 3.3 10^3/ul (0.8-2.9); LYMPHOCYTES % (M) 40 % (15-51); MONOCYTES % (M) 1 % (0-11); PLATELET ESTIMATE DECREASED; SEG NEUT #M 3.5 10^3/ul (1.7-7.5); SEGMENTED NEUTROPHILS (M) % 40 % (39-77); SMUDGE%M 10 % (0-0)
[2017-07-05] MEDS: DOCUSATE SODIUM 10 MG/ML (10ML CUP) GTB ×2 (08:57→20:55)
[2017-07-05] MEDS: CARBIDOPA/LEVODOPA (25/100) TAB NGT ×3 (08:57→20:55)
[2017-07-05] MEDS: POTASSIUM CHLORIDE 10 MEQ in DEXTROSE 5%-0.225% NACL 1,000 ML IV (08:58)
[2017-07-05] MEDS: FAMOTIDINE 20 MG TAB NGT ×2 (08:58→20:55)
[2017-07-05 19:03] LABS: ADD UMIC NO; UR ASCORBIC ACID NEGATIVE (NEGATIVE); UR BILIRUBIN (Dip) NEGATIVE (NEGATIVE); UR BLOOD (Dip) NEGATIVE (NEGATIVE); UR CLARITY CLEAR (CLEAR); UR COLOR YELLOW (YELLOW); UR GLUCOSE (Dip) NEGATIVE (NEGATIVE); UR KETONES (Dip) NEGATIVE (NEGATIVE); UR LEUKOCYTE ESTERASE (Dip) NEGATIVE Leu/ul (NEGATIVE); UR NITRITE (Dip) NEGATIVE (NEGATIVE); UR SPECIFIC GRAVITY (Dip) 1.011 (1.003-1.030); UR TOTAL PROTEIN (Dip) NEGATIVE (NEGATIVE); UR UROBILINOGEN (Dip) 2+ mg/dL (NEGATIVE)
[2017-07-06] MEDS: POTASSIUM CHLORIDE 10 MEQ in DEXTROSE 5%-0.225% NACL 1,000 ML IV ×2 (01:26→12:36)
[2017-07-06] MEDS: FAMOTIDINE 20 MG TAB NGT ×2 (09:14→21:35)
[2017-07-06] MEDS: DOCUSATE SODIUM 10 MG/ML (10ML CUP) GTB ×2 (09:14→21:35)
[2017-07-06] MEDS: CARBIDOPA/LEVODOPA (25/100) TAB NGT ×3 (09:14→21:35)
[2017-07-06 11:46] LABS: ADD MAN DIFF? NO
[2017-07-06 11:58] LABS: WHITE BLOOD COUNT 6.2 10^3/ul (4.8-10.8)
[2017-07-06 11:58] LABS: ABNORMAL IP MESSAGE 1; BASOPHILS % 0.5 % (0.0-2.0); EOSINOPHILS # 0.2 10^3/ul (0.0-0.5); EOSINOPHILS % 2.9 % (0.0-7.0); HEMATOCRIT 24.1 % (37.0-47.0); HEMOGLOBIN 8.3 g/dl (12.0-16.0); LYMPHOCYTES # 1.5 10^3/ul (0.8-2.9); LYMPHOCYTES % 24.5 % (15.0-51.0); MEAN CORPUSCULAR HEMOGLOBIN 28.7 pg (29.0-33.0); MEAN CORPUSCULAR HGB CONC 34.4 g/dl (32.0-37.0); MEAN CORPUSCULAR VOLUME 83.4 fl (82.0-101.0); MEAN PLATELET VOLUME 10.2 fl (7.4-10.4); MONOCYTE # 0.5 10^3/ul (0.3-0.9); MONOCYTES % 7.2 % (0.0-11.0); NEUTROPHIL # 3.9 10^3/ul (1.6-7.5); NUCLEATED RED BLOOD CELLS% 0.3 /100WBC (0.0-0.0); RED BLOOD COUNT 2.89 10^6/ul (4.20-5.40); RED CELL DISTRIBUTION WIDTH 14.3 % (11.5-14.5)
[2017-07-06 12:06] LABS: PLATELET COUNT 77 10^3/UL (140-415); POSITIVE DIFF @See below
[2017-07-06 12:28] LABS: ALANINE AMINOTRANSFERASE 29 IU/L (13-69); ALBUMIN 2.3 g/dl (3.3-4.9); ALBUMIN/GLOBULIN RATIO 0.92; ALKALINE PHOSPHATASE 73 IU/L (42-121); ANION GAP 7 (8-16); ASPARTATE AMINO TRANSFERASE < 8 IU/L (15-46); BILIRUBIN,INDIRECT 0.6 mg/dl (0-1.1); BILIRUBIN,TOTAL 0.6 mg/dl (0.2-1.3); BLOOD UREA NITROGEN 9 mg/dl (7-20); CALCIUM 8.8 mg/dl (8.4-10.2); CARBON DIOXIDE 28 mmol/L (21-31); CHLORIDE 102 mmol/L (97-110); CREATININE 0.47 mg/dl (0.44-1.00); GLUCOSE 95 mg/dl (70-220); MAGNESIUM 1.7 mg/dl (1.7-2.5); PHOSPHORUS 1.4 mg/dl (2.5-4.9); POTASSIUM 3.5 mmol/L (3.5-5.1); SODIUM 133 mmol/L (135-144); TOTAL PROTEIN 4.8 g/dl (6.1-8.1)
[2017-07-06] MEDS ORDERED: ATROPINE 1 MG/10 ML SYRINGE (17:32)
[2017-07-07 05:38] LABS: ADD MAN DIFF? NO
[2017-07-07 05:43] LABS: WHITE BLOOD COUNT 7.7 10^3/ul (4.8-10.8)
[2017-07-07 05:43] LABS: BASOPHILS % 0.5 % (0.0-2.0); EOSINOPHILS # 0.2 10^3/ul (0.0-0.5); EOSINOPHILS % 2.2 % (0.0-7.0); HEMATOCRIT 29.3 % (37.0-47.0); HEMOGLOBIN 10.1 g/dl (12.0-16.0); LYMPHOCYTES # 1.6 10^3/ul (0.8-2.9); LYMPHOCYTES % 20.5 % (15.0-51.0); MEAN CORPUSCULAR HEMOGLOBIN 28.4 pg (29.0-33.0); MEAN CORPUSCULAR HGB CONC 34.5 g/dl (32.0-37.0); MEAN CORPUSCULAR VOLUME 82.3 fl (82.0-101.0); MONOCYTE # 0.8 10^3/ul (0.3-0.9); MONOCYTES % 10.1 % (0.0-11.0); NEUTROPHIL # 4.8 10^3/ul (1.6-7.5); NEUTROPHILS % 62.9 % (39.0-77.0); NUCLEATED RED BLOOD CELLS% 0.5 /100WBC (0.0-0.0); PLATELET COUNT 104 10^3/UL (140-415); RED BLOOD COUNT 3.56 10^6/ul (4.20-5.40); RED CELL DISTRIBUTION WIDTH 14.4 % (11.5-14.5)
[2017-07-07 06:14] LABS: ANION GAP 12 (8-16); BLOOD UREA NITROGEN 9 mg/dl (7-20); CALCIUM 9.1 mg/dl (8.4-10.2); CARBON DIOXIDE 27 mmol/L (21-31); CHLORIDE 105 mmol/L (97-110); CREATININE 0.51 mg/dl (0.44-1.00); GLUCOSE 79 mg/dl (70-220); MAGNESIUM 1.9 mg/dl (1.7-2.5); SODIUM 140 mmol/L (135-144)
[2017-07-07] MEDS: CARBIDOPA/LEVODOPA (25/100) TAB NGT ×3 (08:19→21:01)
[2017-07-07] MEDS: DOCUSATE SODIUM 10 MG/ML (10ML CUP) GTB ×2 (08:19→21:01)
[2017-07-07] MEDS: FAMOTIDINE 20 MG TAB NGT ×2 (08:19→21:01)
[2017-07-07] MEDS ORDERED: LORAZEPAM 2 MG INJ (12:13)
[2017-07-07] MEDS: morphine 2 MG INJ IV (12:44)
[2017-07-07] MEDS: SOD CHLORIDE 0.9% 1,000 ML IV ×2 (15:34→23:40)
[2017-07-07] MEDS: BALSAM PERU/CASTOR OIL 60 GM TUBE TOP (23:39)
[2017-07-08 05:12] LABS: ADD MAN DIFF? NO
[2017-07-08 05:21] LABS: WHITE BLOOD COUNT 7.1 10^3/ul (4.8-10.8)
[2017-07-08 05:21] LABS: BASOPHILS % 0.6 % (0.0-2.0); EOSINOPHILS # 0.1 10^3/ul (0.0-0.5); EOSINOPHILS % 1.7 % (0.0-7.0); HEMATOCRIT 25.6 % (37.0-47.0); HEMOGLOBIN 8.5 g/dl (12.0-16.0); LYMPHOCYTES # 1.3 10^3/ul (0.8-2.9); LYMPHOCYTES % 18.7 % (15.0-51.0); MEAN CORPUSCULAR HEMOGLOBIN 28.1 pg (29.0-33.0); MEAN CORPUSCULAR HGB CONC 33.2 g/dl (32.0-37.0); MEAN CORPUSCULAR VOLUME 84.5 fl (82.0-101.0); MEAN PLATELET VOLUME 10.2 fl (7.4-10.4); MONOCYTE # 0.6 10^3/ul (0.3-0.9); MONOCYTES % 9.1 % (0.0-11.0); NEUTROPHIL # 4.7 10^3/ul (1.6-7.5); NEUTROPHILS % 65.8 % (39.0-77.0); NUCLEATED RED BLOOD CELLS% 0.6 /100WBC (0.0-0.0); PLATELET COUNT 154 10^3/UL (140-415); RED BLOOD COUNT 3.03 10^6/ul (4.20-5.40); RED CELL DISTRIBUTION WIDTH 14.5 % (11.5-14.5)
[2017-07-08 06:11] LABS: ANION GAP 7 (8-16); BLOOD UREA NITROGEN 11 mg/dl (7-20); CALCIUM 8.9 mg/dl (8.4-10.2); CARBON DIOXIDE 30 mmol/L (21-31); CHLORIDE 107 mmol/L (97-110); CREATININE 0.67 mg/dl (0.44-1.00); GLUCOSE 85 mg/dl (70-220); MAGNESIUM 1.8 mg/dl (1.7-2.5); PHOSPHORUS 2.6 mg/dl (2.5-4.9); POTASSIUM 3.5 mmol/L (3.5-5.1); SODIUM 140 mmol/L (135-144)
[2017-07-08] MEDS: SOD CHLORIDE 0.9% 1,000 ML IV ×3 (07:31→23:30)
[2017-07-08] MEDS ORDERED: BALSAM PERU/CASTOR OIL 60 GM TUBE TOP (09:00)
[2017-07-08] MEDS: BALSAM PERU/CASTOR OIL 60 GM TUBE TOP ×2 (09:02→20:54)
[2017-07-08] MEDS: DOCUSATE SODIUM 10 MG/ML (10ML CUP) GTB ×2 (09:02→20:54)
[2017-07-08] MEDS: FAMOTIDINE 20 MG TAB NGT ×2 (09:02→20:54)
[2017-07-08] MEDS: CARBIDOPA/LEVODOPA (25/100) TAB NGT ×3 (09:02→20:54)
[2017-07-08 10:25] LABS: AADO2 Arterial 74.4 mmHg (7.0-24.0); Allen Test ACCEPTAB; Arterial Base Excess 3.1 mmol/L (-3.0-3); Arterial Blood Gas Oxygen Sat 97.3 mmHG (95.0-98.0); Arterial COHb 0.2 % (0.0-3.0); Arterial Fraction of Oxyhgb 96.7 % (93.0-99.0); Arterial HCO3 26.2 mmol/L (22.0-26.0); Arterial MetHb 0.4 % (0.0-1.5); Arterial Total Hemglobin 8.7 g/dl (12.0-18.0); Arterial pCO2 33.7 mmhg (35-45); MODE VENT - AC; Site Left Radial
[2017-07-08] MEDS ORDERED: NA BICARBONATE 8.4% 50 ML SYG (14:23)
[2017-07-08] MEDS: METOCLOPRAMIDE 5 MG TAB NGT (20:54)
[2017-07-08] MEDS: ATROPINE 1 MG/10 ML SYRINGE IV (21:01)
[2017-07-09] MEDS: SOD CHLORIDE 0.9% 1,000 ML IV ×2 (04:20→15:30)
[2017-07-09 05:55] LABS: ANION GAP 11 (8-16); BLOOD UREA NITROGEN 12 mg/dl (7-20); CALCIUM 8.5 mg/dl (8.4-10.2); CARBON DIOXIDE 24 mmol/L (21-31); CHLORIDE 111 mmol/L (97-110); CREATININE 0.55 mg/dl (0.44-1.00); GLUCOSE 79 mg/dl (70-220); MAGNESIUM 1.8 mg/dl (1.7-2.5); PHOSPHORUS 2.8 mg/dl (2.5-4.9); POTASSIUM 3.2 mmol/L (3.5-5.1); SODIUM 143 mmol/L (135-144)
[2017-07-09 06:49] LABS: ADD MAN DIFF? NO
[2017-07-09 06:53] LABS: BASOPHILS % 0.4 % (0.0-2.0); EOSINOPHILS # 0.1 10^3/ul (0.0-0.5); EOSINOPHILS % 1.8 % (0.0-7.0); HEMATOCRIT 24.5 % (37.0-47.0); HEMOGLOBIN 8.2 g/dl (12.0-16.0); LYMPHOCYTES # 1.1 10^3/ul (0.8-2.9); LYMPHOCYTES % 13.8 % (15.0-51.0); MEAN CORPUSCULAR HEMOGLOBIN 28.9 pg (29.0-33.0); MEAN CORPUSCULAR HGB CONC 33.5 g/dl (32.0-37.0); MEAN CORPUSCULAR VOLUME 86.3 fl (82.0-101.0); MEAN PLATELET VOLUME 9.9 fl (7.4-10.4); MONOCYTE # 0.5 10^3/ul (0.3-0.9); MONOCYTES % 6.4 % (0.0-11.0); NEUTROPHILS % 75.2 % (39.0-77.0); NUCLEATED RED BLOOD CELLS% 0.4 /100WBC (0.0-0.0); PLATELET COUNT 188 10^3/UL (140-415); RED BLOOD COUNT 2.84 10^6/ul (4.20-5.40); RED CELL DISTRIBUTION WIDTH 15.1 % (11.5-14.5)
[2017-07-09] MEDS: CARBIDOPA/LEVODOPA (25/100) TAB NGT ×3 (08:41→12:42)
[2017-07-09] MEDS: DOCUSATE SODIUM 10 MG/ML (10ML CUP) GTB ×3 (08:41→12:42)
[2017-07-09] MEDS: BALSAM PERU/CASTOR OIL 60 GM TUBE TOP (08:42)
[2017-07-09] MEDS: FAMOTIDINE 20 MG TAB NGT ×2 (08:42→09:00)
[2017-07-09] MEDS: METOCLOPRAMIDE 5 MG TAB NGT (08:42)
[2017-07-09] MEDS: MAGNESIUM SULFATE 1 GM/D5W 100 ML IVPB (08:42)
[2017-07-09] MEDS: METOCLOPRAMIDE 10 MG INJ IV ×2 (10:13→18:00)
[2017-07-09] MEDS: POTASSIUM CHLORIDE 50 ML IVPB ×2 (10:18→12:37)
[2017-07-09 11:23] LABS: TROPONIN-I < 0.012 ng/ml (0.00-0.12)
[2017-07-09 11:53] LABS: HEMOGLOBIN 7.8 g/dl (12.0-16.0)
[2017-07-09] MEDS ORDERED: ARTIFICIAL TEARS 15 ML OPH BOTH EYES (15:00)
[2017-07-09] MEDS ORDERED: DIMETHICONE STICK TOP (15:00)
[2017-07-09] MEDS ORDERED: LORAZEPAM 2 MG INJ IV (15:00)
[2017-07-09] MEDS: morphine (DRIP) 100 MG/100 ML 100 ML IV (16:06)
[2017-07-09] MEDS: LORAZEPAM 2 MG INJ IV (17:14)
== END 2017-07-09 21:40 | disposition expired | DRG 31 ==
LOC: MS2 06-20 22:00 → MS1 07-09 20:27 → E/R 12:22 → MS4 06-29 14:00 → ICU 06-29 16:32 → MS2 17:38
PROC: 00160J6 Bypass Cerebral Ventricle to Peritoneal Cavity with Synthetic Substitute, Open Approach (ICD-10-PCS; 2017-06-29 07:30)
PROC: 0BH17EZ Insertion of Endotracheal Airway into Trachea, Via Natural or Artificial Opening (ICD-10-PCS; principal; 2017-06-29 07:46)
PROC: 5A1955Z Respiratory Ventilation, Greater than 96 Consecutive Hours (ICD-10-PCS; 2017-06-29 07:46)
PROC: 30233N1 Transfusion of Nonautologous Red Blood Cells into Peripheral Vein, Percutaneous Approach (ICD-10-PCS; 2017-06-29 07:46)
DX: G91.1 Obstructive hydrocephalus (principal); G93.40 Encephalopathy, unspecified; R57.9 Shock, unspecified; J96.00 Acute respiratory failure, unspecified whether with hypoxia or hypercapnia; Z99.11 Dependence on respirator [ventilator] status; I95.9 Hypotension, unspecified; E87.0 Hyperosmolality and hypernatremia; D62 Acute posthemorrhagic anemia; N39.0 Urinary tract infection, site not specified; G20 Parkinson's disease; G93.89 Other specified disorders of brain; B96.89 Other specified bacterial agents as the cause of diseases classified elsewhere; G30.9 Alzheimer's disease, unspecified; F02.80 Dementia in other diseases classified elsewhere, unspecified severity, without behavioral disturbance, psychotic disturbance, mood disturbance, and anxiety; R53.1 Weakness; R26.9 Unspecified abnormalities of gait and mobility; E87.6 Hypokalemia; F09 Unspecified mental disorder due to known physiological condition; Z66 Do not resuscitate
CPT/HCPCS: 31500; 36415; 36430; 36569; 36600; 70250; 70360; 70450; 70551; 70553; 71010; 71045; 74000; 74018; 76937; 80048; 80053; 80061; 81001; 81003; 82533; 82803; 82945; 82962; 83036; 83605; 83735; 84100; 84157; 84439; 84443; 84484; 85014; 85018; 85025; 85610; 85730; 86592; 86803; 86850; 86900; 86901; 86920; 87040; 87070; 87081; 87086; 89051; 93005; 93306; 94002; 94003; 94664; 94770; 94799; 95819; 96374; 97162; 97166; 97530; 99285-25